=== PATIENT | female | born 1940 | race Caucasian/White ===

== ENCOUNTER 2018-02-26 06:49 | Day surgery (SDC) | payer OTHER ==
[2018-02-26] MEDS ORDERED: SOD CHLORIDE 0.9% 1,000 ML IV (07:00)
[2018-02-26] MEDS: MOXIFLOXACIN 0.5% 3 ML OPH OPER (07:40)
[2018-02-26] MEDS: TROPICAMIDE 1% 15 ML OPH OPER (07:40)
[2018-02-26] MEDS: CYCLOPENTOLATE/PHENYLEPH 2 ML OPH OPER (07:41)
[2018-02-26] MEDS: DICLOFENAC 0.1% 2.5 ML OPH OPER (07:41)
[2018-02-26] MEDS ORDERED: PROPOFOL 20 ML (09:29)
[2018-02-26] MEDS ORDERED: FENTAnyl 50 MCG/ML VIAL (09:29)
[2018-02-26] MEDS ORDERED: FENTAnyl 50 MCG/ML VIAL IV ×2 (09:30)
[2018-02-26] MEDS ORDERED: ONDANSETRON 4 MG INJ IV (09:30)
[2018-02-26] MEDS ORDERED: METOCLOPRAMIDE 10 MG INJ IV (09:30)
[2018-02-26] MEDS ORDERED: EPHEDrine SULFATE 50 MG/5 ML SYG IV (09:30)
[2018-02-26] MEDS ORDERED: HYDROmorphONE 1 MG/5 ML IV SYRINGE IV ×2 (09:30)
[2018-02-26] MEDS ORDERED: LABETALOL HCL 20MG INJ IV (09:30)
[2018-02-26] MEDS ORDERED: hydrALAzine 20 MG INJ IV (09:30)
[2018-02-26] MEDS ORDERED: ONDANSETRON 4 MG INJ (09:48)
[2018-02-26] MEDS ORDERED: METOCLOPRAMIDE 10 MG INJ (09:48)
[2018-02-26] MEDS: DEXAMETHASONE 4 MG/ML 1 ML INJ (09:52)
[2018-02-26] MEDS: CARBACHOL 0.01% 1.5 ML OPH INJ (09:52)
[2018-02-26] MEDS: CEFAZOLIN 1 GM INJ (09:52)
[2018-02-26] MEDS: LIDOCAINE 4% (MPF) 5 ML INJ (09:53)
[2018-02-26] MEDS: TETRACAINE 0.5% 4 ML OPH (09:53)
[2018-02-26] MEDS ORDERED: MOXIFLOXACIN 0.5% 3 ML OPH (10:06)
[2018-02-26] MEDS: OXYCODONE/ACETAMINOPHEN (5/325) TAB PO (11:22)
== END 2018-02-26 11:44 | disposition home or self-care (01) ==
LOC: SDS 06:49
DX: H25.11 Age-related nuclear cataract, right eye (principal); I10 Essential (primary) hypertension; E78.5 Hyperlipidemia, unspecified; I25.10 Atherosclerotic heart disease of native coronary artery without angina pectoris; E11.9 Type 2 diabetes mellitus without complications; Z79.02 Long term (current) use of antithrombotics/antiplatelets
CPT/HCPCS: 66984

== ENCOUNTER 2018-09-24 06:38 | Day surgery (SDC) | payer OTHER ==
[2018-09-24] MEDS: SOD CHLORIDE 0.9% 1,000 ML IV (07:00)
[2018-09-24] MEDS: DICLOFENAC 0.1% 2.5 ML OPH OPER (07:23)
[2018-09-24] MEDS: MOXIFLOXACIN 0.5% 3 ML OPH OPER (07:23)
[2018-09-24] MEDS: TROPICAMIDE 1% 15 ML OPH OPER (07:23)
[2018-09-24] MEDS: CYCLOPENTOLATE/PHENYLEPH 2 ML OPH OPER (07:23)
[2018-09-24] MEDS ORDERED: PROPOFOL 200 MG INJ (08:20)
[2018-09-24] MEDS ORDERED: LIDOCAINE 2% (SDV) 5 ML INJ (08:20)
[2018-09-24] MEDS: CEFAZOLIN 1 GM INJ (08:22)
[2018-09-24] MEDS: DEXAMETHASONE 4 MG/ML 1 ML INJ (08:23)
[2018-09-24] MEDS ORDERED: LIDOCAINE 4% (MPF) 5 ML INJ (08:23)
[2018-09-24] MEDS ORDERED: EPINEPHrine 1 MG INJ (08:23)
[2018-09-24] MEDS ORDERED: GENTAMICIN 80 MG INJ (08:23)
[2018-09-24] MEDS: CARBACHOL 0.01% 1.5 ML OPH INJ (08:23)
[2018-09-24] MEDS ORDERED: TETRACAINE 0.5% 4 ML OPH (08:23)
[2018-09-24] MEDS ORDERED: NA HYALURONATE/CHONDROITIN 0.5 ML SYG (08:23)
[2018-09-24] MEDS ORDERED: IPRATROPIUM (NEB) 0.5 MG/2.5 ML AMP HHN (09:00)
[2018-09-24] MEDS ORDERED: LABETALOL HCL 20MG INJ IV (09:00)
[2018-09-24] MEDS ORDERED: DIPHENHYDRAMINE 50 MG INJ IV (09:00)
[2018-09-24] MEDS ORDERED: EPHEDrine 25 MG/5 ML SYG IV (09:00)
[2018-09-24] MEDS ORDERED: FENTAnyl 50 MCG/ML VIAL IV ×3 (09:00)
[2018-09-24] MEDS ORDERED: ALBUTEROL 0.083% (NEB) 2.5 MG/3 ML AMP HHN (09:00)
[2018-09-24] MEDS ORDERED: OXYCODONE/ACETAMINOPHEN (5/325) TAB PO (09:00)
[2018-09-24] MEDS ORDERED: TRIMETHOBENZAMIDE 100 MG/ML VIAL IM (09:00)
[2018-09-24] MEDS ORDERED: MEPERIDINE 25 MG INJ IV (09:00)
[2018-09-24] MEDS ORDERED: HYDROmorphONE 1 MG/5 ML IV SYRINGE IV ×3 (09:00)
[2018-09-24] MEDS ORDERED: MIDAZOLAM 1 MG/ML 2 ML INJ IV (09:00)
[2018-09-24] MEDS: ONDANSETRON 4 MG INJ IV (09:50)
[2018-09-24] MEDS: hydrALAzine 20 MG INJ IV (09:50)
[2018-09-24] MEDS: OXYCODONE/ACETAMINOPHEN (5/325) TAB PO (10:42)
== END 2018-09-24 11:36 | disposition home or self-care (01) ==
LOC: SDS 06:38
DX: H25.12 Age-related nuclear cataract, left eye (principal); I10 Essential (primary) hypertension; E11.9 Type 2 diabetes mellitus without complications
CPT/HCPCS: 66984